=== PATIENT | male | born 1945 | race African-American/Black ===

== ENCOUNTER 2016-08-22 07:01 | Day surgery (SDC) | payer BC, MEDICARE ==
--- NOTE | ~2016-08-22 | OP ---
Record Of Operation [facility] [address] [place]. [address] NAME: CONCHA WELCH : 49 STATUS : [place] [facility] PAT#: [id number] AGE: 71 ADM/REG DATE : 08/22/16 MR#: [id number] REPORT SERV DATE: 08/22/16 DICTATED BY: PARMJIT JERNIGAN JR. DATE: 08/22/16 REPORT STATUS : Draft TRANSCRIBED BY: MODBillie DATE: 08/22/16 DATE OF PROCEDURE: 08/22/2016 PREOPERATIVE DIAGNOSES: Right upper lobe non-small cell lung cancer, chronic obstructive pulmonary disease, iron-deficiency anemia, and hypertension. POSTOPERATIVE DIAGNOSES: Right upper lobe non-small cell lung cancer, chronic obstructive pulmonary disease, iron-deficiency anemia, and hypertension. NAME OF OPERATIONS: Diagnostic therapeutic bronchoscopy, endobronchial ultrasound with multiple fine-needle aspirations, elvin stations 4R and 7. SURGEON: Dr. Parmjit Jernigan. ANESTHESIA: General endotracheal. FINDINGS: The patient is noted to have a non-pathologically enlarged lymph nodes. Multiple touch preps were performed on the subcarinal and right paratracheal lymph nodes, which were negative. Lymphocytes were present. There were no hilar lymph nodes that were significant enough in size to biopsy. Final pathology is pending. DETAILS OF OPERATION: After adequate general anesthesia, the patient was intubated, and LMA was placed. Bronchoscopy was performed noting no endobronchial lesions. Mucous secretions were evacuated. His anatomy was normal. Endobronchial ultrasound was then performed noting benign appearing lymph nodes in the right paratracheal and subcarinal regions. They were very tiny lymph nodes in the hilar region. We sampled the subcarinal and paratracheal lymph nodes, which lymphocytes were present. No tumor cells were seen. Additional material was sent for cell block. Adequate hemostasis was obtained. The procedure was terminated at this point. The patient tolerated the procedure well, and taken back to the recovery room in stable condition. CHRISTINA/SANIYA Parmjit Jernigan Jr., M.D. / [id number] CC: Andriy Warner Jr., Jr., M.D. Justen Lugo MD
[~2016-08-22 07:01] MED LIST: ASAB PO; BENICAR40 PO; MULTIPLE VIT PO; NORV5 PO
[2016-08-22 07:43] LABS: HEMATOCRIT 34.4 % (40.0-51.0); HEMOGLOBIN 11.8 g/dL (13.6-17.8)
[2016-08-22 08:17] LABS: BUN (BLOOD UREA NITROGEN) 20 MG/DL (6-23); CALCIUM, SERUM 8.7 MG/DL (8.5-10.4); CHLORIDE, SERUM 108 MMOL/L (96-112); CO2 (CARBON DIOXIDE) 33 MMOL/L (24-34); CREATININE 1.14 MG/DL (0.70-1.30); GFR AFRICAN AMERICAN 76 ML/MIN (>=60); GFR NON AFRICAN AMERICAN 65 ML/MIN (>=60); GLUCOSE, SERUM 92 MG/DL (60-99); POTASSIUM, SERUM 3.9 MMOL/L (3.5-5.3); SODIUM, SERUM 144 MMOL/L (135-148)
== END 2016-08-22 23:59 | disposition home or self-care (01) ==
LOC: DMU 07:01
PROVIDERS: Thoracic Surgery (Cardiothoracic Vascular Surgery)
PROC: 07B74ZX Excision of Thorax Lymphatic, Percutaneous Endoscopic Approach, Diagnostic (ICD-10-PCS; principal; 2016-08-22 08:00)
DX: C34.11 Malignant neoplasm of upper lobe, right bronchus or lung (principal); J44.9 Chronic obstructive pulmonary disease, unspecified; I10 Essential (primary) hypertension; D50.9 Iron deficiency anemia, unspecified; F17.210 Nicotine dependence, cigarettes, uncomplicated; K21.9 Gastro-esophageal reflux disease without esophagitis; H26.9 Unspecified cataract; Z86.010 Personal history of colon polyps; Z79.82 Long term (current) use of aspirin; Z79.899 Other long term (current) drug therapy; Z98.890 Other specified postprocedural states
CPT/HCPCS: 36415; 80048; 85014; 85018; 88172; 88173; 88305; 93005; A9270-GY; C1725; J2405; J3010